=== PATIENT | female | born 1955 | race Caucasian/White ===

== ENCOUNTER 2018-12-18 16:36 | Inpatient (IN) | payer OTHER ==
[~2018-12-18] VITALS: Ht 160 cm; Wt 81.6 kg
[2018-12-18] MEDS: DEXT 5% / NACL 0.45% 1,000 ML IV SCH (00:45)
[~2018-12-18 16:36] MED LIST: ARIP5TAB8 PO; BUPR300T70 PO; ESCI20TA PO; HUM7525 SUBQ
[2018-12-18 16:40] VITALS: BP 145/83
--- NOTE | 2018-12-18 17:20 | NUR ---
PT AMBULATED TO BED 06.
--- NOTE | 2018-12-18 17:25 | NUR ---
63 Y F bib family with c/o vomiting blood x last night. pt states she hasnt been able to sleep due to vomiting all night. no pain. no fever, no n/v/d. pt states her last bm was sunday and that her stool has been black and tarry. bed is down, locked, bed rail x 1, ermd notified. pmh-liver cirrhosis
--- NOTE | 2018-12-18 18:03 | NUR ---
Dr. Verdugo evaluating patient at bedside.
[2018-12-18] MEDS ORDERED: OCTREOTIDE ACETATE 100 MCG/ML VIAL SUBQ SCH (18:10)
[2018-12-18] MEDS ORDERED: PANTOPRAZOLE 40 MG INJ VIAL IVP ONE (18:10)
--- NOTE | 2018-12-18 18:22 | NUR ---
lab at bedside
[2018-12-18] MEDS ORDERED: PANTOPRAZOLE 40 MG INJ VIAL ONE (18:31)
[2018-12-18 18:33] LABS: BASOPHILS % (AUTO) 0.2 % (0.0-2.0); EOSINOPHILS % (AUTO) 0.6 % (0.0-4.0); HEMATOCRIT 39.4 % (36-48); HEMOGLOBIN 13.6 g/dL (12.0-16.0); LYMPHOCYTES # (AUTO) 1.4 K/uL (2.5-16.5); LYMPHOCYTES % (AUTO) 18.6 % (20.5-51.1); MEAN CORPUSCULAR HEMOGLOBIN 31 pg (27-31); MEAN CORPUSCULAR HGB CONC 35 g/dL (33-37); MEAN CORPUSCULAR VOLUME 90.8 fL (80-94); MONOCYTES # (AUTO) 0.4 K/uL (0.8-1.0); MONOCYTES % (AUTO) 6.1 % (1.7-9.3); NEUTROPHILS # (AUTO) 5.5 K/uL (1.8-7.7); NEUTROPHILS % (AUTO) 74.5 % (42.2-75.2); PLATELET COUNT (AUTO) 52 K/uL (140-450); RED BLOOD CELL COUNT(AUTO) 4.34 MIL/uL (4.20-5.40); RED CELL DISTRIBUTION WIDTH 14.2 % (11.6-13.7); WHITE BLOOD COUNT (AUTO) 7.4 K/uL (4.8-10.8)
[2018-12-18] MEDS: PANTOPRAZOLE 80 MG in NACL 0.9% 100 ML IV SCH (18:34)
[2018-12-18 18:52] LABS: PROTHROMBIN TIME 11.5 secs (10.8-13.4)
--- NOTE | 2018-12-18 19:10 | NUR ---
RECEIVED REPORT FROM TAMEKA EASTMAN.
[2018-12-18 19:16] LABS: ANION GAP 11.7 (8-16); CARBON DIOXIDE 29.8 mmol/L (21-32); CREATININE 0.9 mg/dL (0.6-1.3); POTASSIUM 3.5 mmol/L (3.5-5.1)
[2018-12-18 19:49] LABS: ALBUMIN 3.2 g/dL (3.4-5.0); TOTAL BILIRUBIN 1.3 mg/dL (0.0-1.0)
[2018-12-18] MEDS ORDERED: OMEP20TC12 PO (19:55)
[2018-12-18] MEDS ORDERED: LANTUS SC (19:56)
[2018-12-18] MEDS ORDERED: [UNRECOGNIZED DRUG - CODE] SQ (19:56)
[2018-12-18] MEDS ORDERED: BUPR300T70 PO (19:58)
--- NOTE | 2018-12-18 20:46 | NUR ---
Patient appears to be resting comfortably in bed. Vital Signs within normal limits. Respirations even and unlabored. HOB elevated. Side rail up x 1. Bed in lowest position. PIV site patent, CDI, no redness. Positioned for comfort. Denies pain. No apparent distress at this time.
[2018-12-18] MEDS ORDERED: ONDANSETRON 4 MG/2 ML VIAL IVP PRN (20:50)
[2018-12-18] MEDS ORDERED: MORPHINE SULFATE 2 MG/ML SYR IVP PRN (20:50)
[2018-12-18] MEDS ORDERED: ACETAMINOPHEN 325 MG TAB PO PRN (20:50)
[2018-12-18] MEDS ORDERED: PANTOPRAZOLE 40 MG INJ VIAL IVP SCH (21:00)
--- NOTE | 2018-12-18 21:33 | NUR ---
Patient will be admitted to care of Dr. Gonsalez. Admited to Tele. Will go to room 119 A. Belongings list completed. Report to TAMEKA Brooks.
[2018-12-18 21:34] VITALS: BP 13/70
--- NOTE | 2018-12-18 21:34 | NUR ---
RECEIVED BEDSIDE REPORT FROM ER NURSE, PATIENT A+OX4, PATIENT AMBULATED FROM [facility] TO BED, APPLIED TELE MONITOR, VITALS SIGNS STABLE, 20 G IV IN RIGHTY AC, DRESSING CLEAN DRY AND INTACT, ORIENTED PATIENT TO ROOM AND CALL LIGHT, MRSA SWAB COMPLETED, NO SIGNS OF DISTRESS, PATIENT SITTING UPRIGHT IN BED WITH BED IN LOW POSITION, CALL LIGHT WITHIN REACH, SPOUSE AT BEDSIDE. WILL CONTINUE TO MONITOR.
--- NOTE | 2018-12-18 22:45 | NUR ---
DR. LOBO SPOKE WITH PATIENT AT BEDSIDE, PATIENT ALERT AND ORIENTED, DR. LOBO ORDERED TO CONTINUE THE PROTONIX DRIP, HE ORDERED Q6H CBC AND INSTRUCTED US TO MONITOR HGB AND ADMIN 1 UNIT OF PRBCS IF HGB DROPS 2.
[2018-12-19] VITALS: BP 116/68
--- NOTE | 2018-12-19 | NUR ---
PATIENT RESTING IN BED, VITALS STABLE, NO SIGNS OF DISTRESS, CALL LIGHT WITHIN REACH AND BED IN LOW POSITION. WILL CONTINUE TO MONITOR.
--- NOTE | 2018-12-19 00:20 | NUR ---
SPOKE TO DR. SUTHERLAND, HE PLACED ORDER TO OBTAIN CONSENT FOR EGD. WILL CONTINUE WITH ORDERS.
[2018-12-19 00:33] LABS: BASOPHILS % (AUTO) 0.6 % (0.0-2.0); EOSINOPHILS # (AUTO) 0.1 K/uL (0-0.4); EOSINOPHILS % (AUTO) 1.5 % (0.0-4.0); HEMATOCRIT 37.2 % (36-48); HEMOGLOBIN 12.9 g/dL (12.0-16.0); LYMPHOCYTES # (AUTO) 2.3 K/uL (2.5-16.5); MEAN CORPUSCULAR HEMOGLOBIN 32 pg (27-31); MEAN CORPUSCULAR HGB CONC 35 g/dL (33-37); MEAN CORPUSCULAR VOLUME 91.1 fL (80-94); MONOCYTES # (AUTO) 0.6 K/uL (0.8-1.0); MONOCYTES % (AUTO) 7.2 % (1.7-9.3); NEUTROPHILS # (AUTO) 4.9 K/uL (1.8-7.7); NEUTROPHILS % (AUTO) 61.7 % (42.2-75.2); PLATELET COUNT (AUTO) 50 K/uL (140-450); RED BLOOD CELL COUNT(AUTO) 4.08 MIL/uL (4.20-5.40); RED CELL DISTRIBUTION WIDTH 14.2 % (11.6-13.7)
[2018-12-19] MEDS ORDERED: PANTOPRAZOLE 40 MG INJ VIAL ONE (03:40)
--- NOTE | 2018-12-19 03:48 | NUR ---
ADMINISTERED ORDERED MEDICATION, PATIENT SLEEPING IN BED, VITALS SIGNS STABLE, NO SIGN OF DISTRESS ON RA, WILL CONTINUE TO MONITOR
[2018-12-19] MEDS: PANTOPRAZOLE 80 MG in NACL 0.9% 100 ML IV SCH (03:49)
[2018-12-19 04:00] VITALS: BP 119/59
[2018-12-19 06:36] LABS: PROTHROMBIN TIME 11.8 secs (10.8-13.4)
[2018-12-19 06:42] LABS: ALBUMIN 2.8 g/dL (3.4-5.0); ANION GAP 12.1 (8-16); CARBON DIOXIDE 28.4 mmol/L (21-32); CREATININE 0.8 mg/dL (0.6-1.3); POTASSIUM 3.5 mmol/L (3.5-5.1); TOTAL BILIRUBIN 1.1 mg/dL (0.0-1.0)
[2018-12-19 06:45] LABS: BASOPHILS % (AUTO) 0.5 % (0.0-2.0); EOSINOPHILS # (AUTO) 0.2 K/uL (0-0.4); EOSINOPHILS % (AUTO) 2.2 % (0.0-4.0); HEMATOCRIT 36.2 % (36-48); HEMOGLOBIN 12.8 g/dL (12.0-16.0); LYMPHOCYTES # (AUTO) 2.3 K/uL (2.5-16.5); LYMPHOCYTES % (AUTO) 32.5 % (20.5-51.1); MEAN CORPUSCULAR HEMOGLOBIN 32 pg (27-31); MEAN CORPUSCULAR HGB CONC 35 g/dL (33-37); MEAN CORPUSCULAR VOLUME 91.7 fL (80-94); MONOCYTES # (AUTO) 0.6 K/uL (0.8-1.0); MONOCYTES % (AUTO) 7.9 % (1.7-9.3); NEUTROPHILS % (AUTO) 56.9 % (42.2-75.2); PLATELET COUNT (AUTO) 44 K/uL (140-450); RED BLOOD CELL COUNT(AUTO) 3.95 MIL/uL (4.20-5.40); RED CELL DISTRIBUTION WIDTH 14.3 % (11.6-13.7)
[2018-12-19] MEDS: DEXT 5% / NACL 0.45% 1,000 ML IV SCH (06:50)
--- NOTE | 2018-12-19 07:26 | NUR ---
GAVE BEDSIDE REPORT TO DAY SHIFT NURSE, PATIENT SITTING UP IN BED WATCHING TV, NO SIGNS OF DISTRESS ON RA.
--- NOTE | 2018-12-19 07:27 | NUR ---
RECEIVED BEDSIDE REPORT FROM TAMEKA FERNANDES. PATIENT ON TELE MONITOR AND STANDARD PRECAUTIONS IN PLACE. PATIENT AAOX4 AND ON ROOM AIR, NO DISTRESS NOTED. IV ON R FA 22 G AND R AC 20 G, BOTH ASYMPTOMATIC PATENT AND INTACT. INFUSING D5 1/2 NS AT 100. PATIENT ABLE TO AMBULATE AND CONTINENT, SKIN INTACT. BED IN LOW POSITION, CALL LIGHT WITHIN REACH. WILL CONTINUE TO MONITOR.
[2018-12-19] MEDS ORDERED: fentaNYL 0.05 MG/ML VIAL ONE (07:57)
[2018-12-19] MEDS ORDERED: MIDAZOLAM 2 MG/2 ML VIAL ONE (07:58)
[2018-12-19 08:00] VITALS: BP 107/52
[2018-12-19] MEDS ORDERED: fentaNYL 0.05 MG/ML VIAL IVP SCH (08:20)
[2018-12-19] MEDS ORDERED: MIDAZOLAM 2 MG/2 ML VIAL IVP SCH (08:20)
--- NOTE | 2018-12-19 08:32 | NUR ---
PATIENT BACK FROM OR FOR EGD. PATIENT IN STABLE CONDITION.
--- NOTE | 2018-12-19 08:57 | NUR ---
PATIENT HAS BEEN SCREENED AND CATEGORIZED MODERATE NUTRITION RISK. PATIENT WILL BE SEEN WITHIN 3-5 DAYS OF ADMISSION. 12/21/18-12/23/[address]
[2018-12-19] MEDS ORDERED: ESCITALOPRAM 20 MG TAB PO SCH (09:00)
[2018-12-19] MEDS ORDERED: buPROPion 150 MG TABER PO SCH (09:00)
[2018-12-19] MEDS ORDERED: ARIPiprazole 10 MG TAB PO SCH (09:00)
[2018-12-19] MEDS ORDERED: PANTOPRAZOLE 40 MG INJ VIAL IVP SCH (09:00)
[2018-12-19] MEDS ORDERED: NON-FORMULARY ITEM (Bupropion HCl* (Wellbutrin Xl*) 1 TAB) PO SCH (09:00)
[2018-12-19] MEDS ORDERED: SUCR1TAB35 PO (09:23)
[2018-12-19] MEDS ORDERED: PANT40EC PO (09:23)
--- NOTE | 2018-12-19 10:33 | NUR ---
ADMINISTERED SCHEDULED MEDS. PATIENT TOLERATED WELL. WILL CONTINUE TO MONITOR.
--- NOTE | 2018-12-19 10:55 | NUR ---
ANTHONY NOTE I SPOKE WITH DALLAS OF [facility] # [phone] TO SET UP PATIENT'S HIGH RISK OUTPATIENT FOLLOW UP WITH DR. ROB LOBO ON DECEMBER 23, 2018 2:00PM AT [address] [place], [place] [id number]. I GAVE THE PATIENT HER FOLLOW UP SCHEDULE AND FAXED REQUESTED FACESHEET, ORDER FOR HIGH RISK OUTPATIENT FF UP, LAB RESULTS AND LIST OF MEDS TO [facility] ATTN: DALLAS. FAXED ORDER FOR [facility] HIGH RISK OUTPATIENT FF UP TO [facility]. ANTHONY MAURO.
[2018-12-19] MEDS ORDERED: PNEUMOCOCCAL VACCINE 23 MCG/0.5 ML VIAL IMVAC SCH (11:10)
[2018-12-19] MEDS ORDERED: INFLUENZA VIRUS VACCINE QUAD 0.5 ML SYR IMVAC PRN (11:10)
--- NOTE | 2018-12-19 11:50 | NUR ---
DISCHARGE INSTRUCTIONS PROVIDED TO PATIENT. PATIENT WITH FORM FOR APPOINTMENT WITH DR. LOBO GIVEN BY ANGEL, BAR PORTER. SKIN INTACT. FLU AND PNA VACCINES GIVEN AT DISCHARGE. INSTRUCTED TO RETURN TO NEAREST ER OR CALL 911 WHEN SHE HAS SOB, FEVER, PAIN, BLEEDING. PATIENT VERBALIZED UNDERSTANDING. PRESCRIPTIONS PROVIDED IN DISCHARGE PACKET/FOLDER. ALL BELONGINGS, CLOTHES, ESTATE PLANNER, AND PHONE BROUGHT WITH PATIENT. WRIST BANDS REMOVED AND IV REMOVED, IV TIP INTACT. ANSWERED ALL QUESTIONS AND CONCERNS. AMBULATED WITH FRIEND TO MAIN LOBBY.
[2018-12-19] MEDS ORDERED: LACTULOSE 20 GM/30 ML UDC PO SCH (21:00)
== END 2018-12-19 11:50 | disposition home or self-care (01) | DRG 241 ==
LOC: MED 16:36 → MTU 20:50
PROVIDERS: ADMIT Hospitalist; ATTEND Hospitalist
PROC: 0DJ08ZZ Inspection of Upper Intestinal Tract, Via Natural or Artificial Opening Endoscopic (ICD-10-PCS; principal; 2018-12-18)
PROC: 3E0234Z Introduction of Serum, Toxoid and Vaccine into Muscle, Percutaneous Approach (ICD-10-PCS; 2018-12-19)
PROC: 3E02340 Introduction of Influenza Vaccine into Muscle, Percutaneous Approach (ICD-10-PCS; 2018-12-19)
DX: K29.81 Duodenitis with bleeding (principal); D69.59 Other secondary thrombocytopenia; D69.6 Thrombocytopenia, unspecified; N04.9 Nephrotic syndrome with unspecified morphologic changes; E44.1 Mild protein-calorie malnutrition; K70.30 Alcoholic cirrhosis of liver without ascites; K22.6 Gastro-esophageal laceration-hemorrhage syndrome; E11.9 Type 2 diabetes mellitus without complications; D73.1 Hypersplenism; F32.9 Major depressive disorder, single episode, unspecified; K29.71 Gastritis, unspecified, with bleeding; I10 Essential (primary) hypertension; K57.90 Diverticulosis of intestine, part unspecified, without perforation or abscess without bleeding; K21.9 Gastro-esophageal reflux disease without esophagitis; K26.4 Chronic or unspecified duodenal ulcer with hemorrhage; Z68.31 Body mass index [BMI] 31.0-31.9, adult; Z88.1 Allergy status to other antibiotic agents; Z23 Encounter for immunization
CPT/HCPCS: 36415; 71045; 80053; 82140; 84443; 85025; 85610; 85730; 86886; 86900; 86901; 87081; 90732; 93005; 96374; 99285; C9113; J2250; J2354; J3010; J7030; Q0092

== ENCOUNTER 2019-01-11 17:41 | Emergency (ER) | payer OTHER ==
[~2019-01-11] VITALS: Ht 160 cm; Wt 80.7 kg
[~2019-01-11 17:41] MED LIST changes: +LANTUS SC; +OMEP20TC12 PO; +PANT40EC PO; +SUCR1TAB35 PO; +[UNRECOGNIZED DRUG - CODE] SQ
[2019-01-11 17:54] VITALS: BP 159/78
--- NOTE | 2019-01-11 19:22 | NUR ---
PT AMBULATED TO BED 12
--- NOTE | 2019-01-11 20:00 | NUR ---
PT PRESENTS TO ED WITH COMPLAINTS OF LEFT CALF PAIN SINCE SUNDAY. PT STATES SHE WOKE UP IN AM, SUDDEN ONSET, PT DESCRIBES PAIN LIKE "DAMIR HORSE." PT STATES SHE WAS ADMITTED LAST APRIL FOR SIMILAR SYMPTOMS. PT STATES THEY DID AN US LAST TIME AND WAS NEGATIVE FOR DVT. PT AMBULATES WITH STEADY GAIT. NO ERYTHEMA NOTED TO LEFT CALF, WARM TO TOUCH. AOX4, CLEAR SPEECH. NAD NOTED. PT STATES "I JUST WANT TO KNOW WHY IT KEEPS COMING BACK." PT DENIES ANY TRAUMA.
--- NOTE | 2019-01-11 20:19 | NUR ---
Dr. Knapp evaluating patient at bedside.
[2019-01-11] MEDS ORDERED: KETOROLAC 60 MG/2 ML VIAL IM ONE (20:25)
[2019-01-11 20:46] VITALS: BP 150/78
== END 2019-01-11 20:48 | disposition home or self-care (01) ==
LOC: MED 17:41
DX: M79.662 Pain in left lower leg (principal); E11.9 Type 2 diabetes mellitus without complications; I10 Essential (primary) hypertension; Z79.4 Long term (current) use of insulin; Z79.899 Other long term (current) drug therapy; Z88.1 Allergy status to other antibiotic agents
CPT/HCPCS: 96372; 99283; J1885

== ENCOUNTER 2019-03-10 16:08 | Emergency (ER) | payer OTHER ==
[~2019-03-10] VITALS: Ht 160 cm; Wt 80.7 kg
[~2019-03-10 16:08] MED LIST changes: -HUM7525 SUBQ; -OMEP20TC12 PO
[2019-03-10 16:21] VITALS: BP 148/73
--- NOTE | 2019-03-10 16:47 | NUR ---
64 Y FEMALE BIB C/O RIGHT LEG SWOLLEN, PAIN /10 TODAY, REFERRED BY PCP FOR DVT CHECK UP. REQUESTING ULTRASOUND. EDEMA PRESENT ON R LEG, NON-PITTING. PALPABLE RIGHT PEDAL PULSE. L LEG IN BRACE. PT WHEELCHAIRED TO ROOM. BS 214. PT AA0X4. VSS AT THIS TIME. BED IS DOWN, LOCKED, BED RAIL X 1, ERMD TO SEE PT. HX OF DM, LIVER CIRRHOSIS, TUMOR REMOVABLE TO LEFT LOWER EXTREMITY 02/27/19.
--- NOTE | 2019-03-10 17:14 | NUR ---
Dr. Black evaluating patient at bedside.
--- NOTE | 2019-03-10 17:28 | NUR ---
US AT BEDSIDE
--- NOTE | 2019-03-10 18:30 | NUR ---
PT AA0X4. SITTING IN BED WITH BEDSIDE.
[2019-03-10] MEDS ORDERED: KETOROLAC 60 MG/2 ML VIAL IM ONE (18:45)
[2019-03-10 18:52] LABS: ANION GAP 9.9 (8-16); CREATININE 0.8 mg/dL (0.6-1.3); POTASSIUM 3.9 mmol/L (3.5-5.1)
[2019-03-10 18:59] LABS: TOTAL BILIRUBIN 0.7 mg/dL (0.0-1.0)
[2019-03-10 19:24] VITALS: BP 138/58
--- NOTE | 2019-03-10 19:24 | NUR ---
Patient discharged with v/s stable. Written and verbal after care instructions given and explained. Patient verbalized understanding. PT WHEELCHAIRED BY . All questions addressed prior to discharge. Advised to follow up with PMD. PT GIVEN COPY OF ULTRASOUND RESULTS AND LAB WORK.
== END 2019-03-10 19:24 | disposition home or self-care (01) ==
LOC: MED 16:08
DX: R60.0 Localized edema (principal); E11.9 Type 2 diabetes mellitus without complications; N28.9 Disorder of kidney and ureter, unspecified; Z98.890 Other specified postprocedural states; Z79.4 Long term (current) use of insulin; Z79.899 Other long term (current) drug therapy; Z88.1 Allergy status to other antibiotic agents
CPT/HCPCS: 36415; 80053; 93970; 96372; 99284; J1885; Q0092

== ENCOUNTER 2019-06-11 20:03 | Emergency (ER) | payer OTHER ==
[~2019-06-11] VITALS: Ht 160 cm; Wt 83.0 kg
[2019-06-11 20:07] VITALS: BP 168/79
--- NOTE | 2019-06-11 20:11 | NUR ---
PT AMBULATED TO THE LOBBY WITH VSS.
--- NOTE | 2019-06-11 20:35 | NUR ---
PATIENT PRESENTS TO ED WITH C/O BACK AND NECK PAIN S/P SLIP AND FALL AT [facility]. PATIENT DENIES ANY LOC, DOES STATE POSSIBLE HEAD INJURY. PATIENT GCS 15, AAOX4 . PT DENIES ANY USE OF BLOOD THINNERS. GIANNA NOBLE MADE AWARE .PATIENT DENIES N/V/D; SKIN IS PINK/WARM/DRY; AAOX4 WITH EVEN AND STEADY GAIT; LUNGS CLEAR BL; HR EVEN AND REGULAR; PT DENIES ANY FEVER, CP, SOB, OR COUGH AT THIS TIME; VSS; PATIENT POSITIONED FOR COMFORT; HOB ELEVATED; BEDRAILS UP X2; BED DOWN. ER MD MADE AWARE OF PT STATUS.
--- NOTE | 2019-06-11 20:40 | NUR ---
PATIENT BEING EVAL BY GIANNA FRIED
[2019-06-11] MEDS ORDERED: KETOROLAC 30 MG/ML VIAL IM ONE (20:45)
[2019-06-11 21:58] VITALS: BP 141/62
--- NOTE | 2019-06-11 21:58 | NUR ---
Patient discharged with v/s stable. Written and verbal after care instructions given and explained. Patient alert, oriented and verbalized understanding of instructions. Ambulatory with steady gait. All questions addressed prior to discharge. ID band removed. Patient advised to follow up with PMD. Rx of VOLTAREN GEL given. Patient educated on indication of medication including possible reaction and side effects. Opportunity to ask questions provided and answered.
== END 2019-06-11 21:58 | disposition home or self-care (01) ==
LOC: MED 20:03
DX: S16.1XXA Strain of muscle, fascia and tendon at neck level, initial encounter (principal); M47.892 Other spondylosis, cervical region; I10 Essential (primary) hypertension; E11.9 Type 2 diabetes mellitus without complications; Z79.899 Other long term (current) drug therapy; Z88.1 Allergy status to other antibiotic agents; Z87.448 Personal history of other diseases of urinary system; Z79.4 Long term (current) use of insulin; W01.0XXA Fall on same level from slipping, tripping and stumbling without subsequent striking against object, initial encounter; Y93.89 Activity, other specified; Y92.512 Supermarket, store or market as the place of occurrence of the external cause; Y99.8 Other external cause status
CPT/HCPCS: 72050; 96372; 99283; J1885

== ENCOUNTER 2019-09-28 14:23 | Emergency (ER) | payer OTHER ==
[~2019-09-28] VITALS: Ht 167.6 cm; Wt 81.6 kg
[2019-09-28 14:25] VITALS: BP 127/69
--- NOTE | 2019-09-28 14:32 | NUR ---
PT TAKEN TO BED 5 BY EMS.
[2019-09-28] MEDS ORDERED: NACL 0.9% 1,000 ML IV SCH (15:00)
--- NOTE | 2019-09-28 15:00 | NUR ---
GANGA FROM HOME FOR HYPERGLYCEMIA, FAMILY CALLED 911; PT INITIALLY DIDN'T WANT TO GO TO HOSPITAL, C/O HEADACHE, DIZZINESS, AND FEELING "TIRED" FAMILY STATES PT DID NOT TAKE HER INSULIN LAST NIGHT ,PT AWAKE ,ALERT AFEBRILE NOT IN DISTRESS. HX DM, HTN, HIGH CHOLESTEROL
--- NOTE | 2019-09-28 15:24 | NUR ---
LABS AT BEDSIDE.
[2019-09-28 15:45] LABS: BASOPHILS % (AUTO) 0.2 % (0.0-2.0); EOSINOPHILS % (AUTO) 0.2 % (0.0-4.0); HEMATOCRIT 41.2 % (36-48); LYMPHOCYTES # (AUTO) 1.4 K/uL (2.5-16.5); LYMPHOCYTES % (AUTO) 20.3 % (20.5-51.1); MEAN CORPUSCULAR HEMOGLOBIN 31 pg (27-31); MEAN CORPUSCULAR HGB CONC 34 g/dL (33-37); MEAN CORPUSCULAR VOLUME 91.2 fL (80-94); MONOCYTES # (AUTO) 0.4 K/uL (0.8-1.0); MONOCYTES % (AUTO) 6.6 % (1.7-9.3); NEUTROPHILS # (AUTO) 4.9 K/uL (1.8-7.7); NEUTROPHILS % (AUTO) 72.7 % (42.2-75.2); PLATELET COUNT (AUTO) 77 K/uL (140-450); RED BLOOD CELL COUNT(AUTO) 4.52 MIL/uL (4.20-5.40); WHITE BLOOD COUNT (AUTO) 6.7 K/uL (4.8-10.8)
--- NOTE | 2019-09-28 15:55 | NUR ---
PT WENT TO RESTROOM WITH FAMILY.
[2019-09-28 16:11] LABS: ALBUMIN 2.9 g/dL (3.4-5.0); ANION GAP 13.1 (8-16); CARBON DIOXIDE 27.2 mmol/L (21-32); CREATININE 1.3 mg/dL (0.6-1.3); POTASSIUM 4.3 mmol/L (3.5-5.1); TOTAL BILIRUBIN 0.6 mg/dL (0.0-1.0)
--- NOTE | 2019-09-28 16:14 | NUR ---
dr edmondson informed of neck pain at 01/31.
[2019-09-28] MEDS ORDERED: KETOROLAC 30 MG/ML VIAL IVP ONE (16:15)
--- NOTE | 2019-09-28 16:15 | NUR ---
received critical lab result from lab blood sugar is 474 dr edmondson informed.
[2019-09-28] MEDS ORDERED: INSULIN REGULAR, HUMAN 100 UNIT/ML VIAL IV ONE (17:10)
[2019-09-28 17:25] LABS: APPEARANCE,URINE CLEAR (CLEAR); BILIRUBIN,URINE NEGATIVE (NEGATIVE); BLOOD, URINE 1+ (NEGATIVE); COLOR,URINE YELLOW (YELLOW); LEUKOCYTE ESTERASE ,URINE 2+ (NEGATIVE); NITRITE, URINE NEGATIVE (NEGATIVE); UGLUCOSE 3+ (NEGATIVE)
[2019-09-28 17:40] LABS: WBC,URINE 16-25 (MOD) /HPF (0-5)
--- NOTE | 2019-09-28 18:20 | NUR ---
DR DIALLO AT BEDSIDE .ACCU CHECK AT 332 MG/DL.DR DIALLO INFORMED AND AWARE.
[2019-09-28 18:43] VITALS: BP 109/48
--- NOTE | 2019-09-28 18:44 | NUR ---
Patient discharged with v/s stable. Written and verbal after care instructions given and explained cervical sprain. Patient alert, oriented and verbalized understanding of instructions. Ambulatory with steady gait. All questions addressed prior to discharge. ID band removed. Patient advised to follow up with PMD. Rx of cipro,motrin and norco given. Patient educated on indication of medication including possible reaction and side effects. Opportunity to ask questions provided and answered.
== END 2019-09-28 18:44 | disposition home or self-care (01) ==
LOC: MED 14:23
DX: M50.90 Cervical disc disorder, unspecified, unspecified cervical region (principal); N39.0 Urinary tract infection, site not specified; I12.9 Hypertensive chronic kidney disease with stage 1 through stage 4 chronic kidney disease, or unspecified chronic kidney disease; E11.22 Type 2 diabetes mellitus with diabetic chronic kidney disease; N18.9 Chronic kidney disease, unspecified; Z79.899 Other long term (current) drug therapy; Z79.4 Long term (current) use of insulin; Z98.890 Other specified postprocedural states
CPT/HCPCS: 36415; 80053; 81001; 82948; 83690; 85025; 87086; 96361; 96374; 96375; 99283; J1815; J1885; J7030

== ENCOUNTER 2020-02-26 20:59 | Emergency (ER) | payer OTHER ==
[~2020-02-26] VITALS: Ht 160 cm; Wt 81.6 kg
[2020-02-26 21:04] VITALS: BP 166/74
--- NOTE | 2020-02-26 21:12 | NUR ---
PT AMBULAOTRY TO ROOM 1
--- NOTE | 2020-02-26 21:28 | NUR ---
64 YO F BIB SELF FOR C/C OF 710 LEFT LIP, TONGUE, AND FACIAL PAIN SINCE A RASH FORMED ON HER FACE LAST SUNDAY. RASH STARTED ON LEFT LIP AND HAS SINCE SPREAD TO LEFT FACE, EAR, AND TONGUE. PT STATES IT FEELS LIKE A PRICKLY PAIN. RASH APPEARS TO LOOK LIKE VESICLES. PT STATES SHE HAS BEEN TAKIN IBUPROFEN WITH NO RELIEF OF SYMPTOMS. PT DENIES N/V/D, SOB, COUGH, OR FEVER. PT RESTING IN BED COMFORTABLY. BED LOCKED AND IN LOWEST POSITION. SIDE RAILS X1. ALLERGIES TO CEPHALEXIN
[2020-02-26] MEDS ORDERED: predniSONE 20 MG TAB PO ONE (21:30)
[2020-02-26] MEDS ORDERED: KETOROLAC 30 MG/ML VIAL IM ONE (21:40)
--- NOTE | 2020-02-26 21:52 | NUR ---
Patient discharged with v/s stable. Written and verbal after care instructions given and explained. Patient alert, oriented and verbalized understanding of instructions. Ambulatory with steady gait. All questions addressed prior to discharge. ID band removed. Patient advised to follow up with PMD. Rx of NORCO, PREDNISOEN AND ANTIVIRAL given. Patient educated on indication of medication including possible reaction and side effects. Opportunity to ask questions provided and answered.
[2020-02-26 21:54] VITALS: BP 166/74
== END 2020-02-26 21:54 | disposition home or self-care (01) ==
LOC: MED 20:59
DX: B02.21 Postherpetic geniculate ganglionitis (principal); I10 Essential (primary) hypertension; E11.9 Type 2 diabetes mellitus without complications; Z88.1 Allergy status to other antibiotic agents; Z79.899 Other long term (current) drug therapy
CPT/HCPCS: 96372; 99283; J1885; J7512

== ENCOUNTER 2020-03-22 00:47 | Emergency (ER) | payer OTHER ==
[~2020-03-22] VITALS: Ht 160 cm; Wt 81.2 kg
[2020-03-22 01:05] VITALS: BP 137/71
--- NOTE | 2020-03-22 01:15 | NUR ---
PT TAKEN TO BED 7
--- NOTE | 2020-03-22 01:25 | NUR ---
65 YEAR OLD FEMALE COMPLAINS OF PAIN TO LEFT SHOULDER AND LEFT KNEE AFTER FALLING TO FLOOR AT [place]. PT DENIES HITTING HEAD. LEFT ARM HAS LIMITED ROM IN LEFT ARM AND LEG. PULSES +3 IN EXTREMITIES. PT STATES SOME DIZZINESS WHEN TRANSFER FROM WHEELCHAIR TO BED. PT AOX4, BREATHING EVEN AND UNLABORED, SKIN WARM AND DRY. BED IN LOWEST POSITION, LOCKED, BED RAIL UPX1. PMH - LIVER CIRRHOSIS, DM2 ALLERGIES - KEFLEX
--- NOTE | 2020-03-22 01:46 | NUR ---
Dr. Willis examining patient.
[2020-03-22] MEDS ORDERED: BACITRACIN OINT 500 UNITS/GM PKT TP ONE (01:54)
[2020-03-22] MEDS: BACITRACIN OINT 500 UNITS/GM PKT TP ONE (01:55)
[2020-03-22] MEDS: KETOROLAC 30 MG/ML VIAL IM ONE (01:59)
--- NOTE | 2020-03-22 01:59 | NUR ---
EMT AT BEDSIDE CLEANING ABRASION ON LEFT KNEE, PLACED ON BACITRACIN
--- NOTE | 2020-03-22 02:02 | NUR ---
XRAY AT BEDSIDE
--- NOTE | 2020-03-22 02:07 | NUR ---
Jaymie huitron in [facility] - 03/22/20 at 0207 by АННА X-Ray at bedside.
[2020-03-22 02:50] VITALS: BP 137/71
== END 2020-03-22 02:50 | disposition home or self-care (01) ==
LOC: MED 00:47
DX: M25.512 Pain in left shoulder (principal); M25.562 Pain in left knee; M54.2 Cervicalgia; E11.9 Type 2 diabetes mellitus without complications; I10 Essential (primary) hypertension; Z79.4 Long term (current) use of insulin; Z79.899 Other long term (current) drug therapy; Z88.1 Allergy status to other antibiotic agents
CPT/HCPCS: 73030; 73562; 96372; 99284; J1885; Q0092

== ENCOUNTER 2020-05-04 16:11 | Observation (INO) | payer OTHER ==
[~2020-05-04] VITALS: Ht 160 cm; Wt 79.4 kg
[2020-05-04 16:23] VITALS: BP 127/59
--- NOTE | 2020-05-04 16:29 | NUR ---
Patient transferred to bed 6 via wheelchair by family. RN evaluating patient at bedside.
--- NOTE | 2020-05-04 16:36 | NUR ---
65 y/o female from home referred from urgent care to r/o DVT. Pt c/o rt calf pain that started yesterday. States she had rt big toe surgery on 04/29/20. Pt presents with splint to rt lower leg. Able to move toes. Skin warm, dry, and intact. 8/10 throbbing pain to calf. Took hydrocodone at 1400 today with some relief. Positioned for comfort, x 1 side rail raised. VSS medhx: HTN, DM, Cirrhosis allergies: keflex
--- NOTE | 2020-05-04 16:39 | NUR ---
Dr Alvarez at bedside examining pt
--- NOTE | 2020-05-04 16:43 | NUR ---
US tech at bedside for exam.
[2020-05-04 16:50] LABS: BASOPHILS % (AUTO) 0.6 % (0.0-2.0); EOSINOPHILS # (AUTO) 0.1 K/uL (0-0.4); EOSINOPHILS % (AUTO) 1.9 % (0.0-4.0); HEMATOCRIT 36.1 % (36-48); HEMOGLOBIN 12.2 g/dL (12.0-16.0); LYMPHOCYTES # (AUTO) 1.6 K/uL (2.5-16.5); LYMPHOCYTES % (AUTO) 21.3 % (20.5-51.1); MEAN CORPUSCULAR HEMOGLOBIN 32 pg (27-31); MEAN CORPUSCULAR HGB CONC 34 g/dL (33-37); MEAN CORPUSCULAR VOLUME 94.7 fL (80-94); MONOCYTES # (AUTO) 0.8 K/uL (0.8-1.0); MONOCYTES % (AUTO) 10.8 % (1.7-9.3); NEUTROPHILS % (AUTO) 65.4 % (42.2-75.2); PLATELET COUNT (AUTO) 76 K/uL (140-450); RED BLOOD CELL COUNT(AUTO) 3.81 MIL/uL (4.20-5.40); RED CELL DISTRIBUTION WIDTH 14.5 % (11.6-13.7); WHITE BLOOD COUNT (AUTO) 7.7 K/uL (4.8-10.8)
[2020-05-04] MEDS ORDERED: NACL 0.9% 500 ML IV SCH (17:01)
[2020-05-04] MEDS ORDERED: MORPHINE SULFATE 2 MG/ML SYR IVP ONE (17:05)
[2020-05-04] MEDS ORDERED: CLINDAMYCIN 900 MG in DEXTROSE 5% 100 ML IV ONE (17:05)
--- NOTE | 2020-05-04 17:10 | NUR ---
20G IV placed to lt forearm, blood cultures drawn at this time.
[2020-05-04 17:12] LABS: PROTHROMBIN TIME 11.4 secs (10.8-13.4)
[2020-05-04] MEDS ORDERED: CLINDAMYCIN 900 MG/6 ML VIAL IV ONE (17:12)
[2020-05-04] MEDS ORDERED: VANCOMYCIN 1,000 MG in DEXTROSE 5% 250 ML IV ONE (17:15)
[2020-05-04 17:29] LABS: ALBUMIN 2.6 g/dL (3.4-5.0); ANION GAP 10.6 (8-16); CARBON DIOXIDE 27.3 mmol/L (21-32); CREATININE 0.8 mg/dL (0.6-1.3); POTASSIUM 3.9 mmol/L (3.5-5.1); TOTAL BILIRUBIN 0.8 mg/dL (0.0-1.0)
--- NOTE | 2020-05-04 17:45 | NUR ---
Pt states she is unable to provide urine at this time. Will follow up with pt
[2020-05-04] MEDS ORDERED: VANCOMYCIN PER PHARMACY MC PRN (18:05)
[2020-05-04] MEDS ORDERED: INSULIN LISPRO SLIDING SCALE 100 UNITS/ML VIAL SUBQ PRN (18:05)
[2020-05-04] MEDS ORDERED: ONDANSETRON 4 MG/2 ML VIAL IVP PRN (18:05)
[2020-05-04] MEDS ORDERED: ACETAMINOPHEN 325 MG TAB PO PRN (18:05)
[2020-05-04] MEDS ORDERED: ZOLPIDEM 5 MG TAB PO PRN (18:05)
[2020-05-04] MEDS ORDERED: DEXTROSE 50% 50 ML SYR IVP PRN (18:05)
[2020-05-04] MEDS ORDERED: VANCOMYCIN 1,000 MG VIAL ONE (18:14)
--- NOTE | 2020-05-04 18:53 | NUR ---
RECEIVED PATIENT FROM ED NURSE FOR ADMISSION AND CONTINUITY OF CARE VIA [facility]. PATIENT IS AAOX4, MARSHALLESE SPEAKING. RESPIRATIONS EVEN AND UNLABORED, ROOM AIR. VISIBLE CHEST RISE AND FALL NOTED. MED-SURG. SKIN WARM AND DRY. S/P RIGHT BUNION REMOVAL ON 04/29/2020. DRESSING INTACT. DX: FOOT CELLULITIS. IV IN THE LEFT FA G22, RUNNING VANCO FROM ED AT 165 ML/HR. IV RUNNING WELL. PATIENT IS BEDREST. FALL PRECAUTION. BED IN LOW POSITION. CALL LIGHT IS WITHIN REACH. WILL CONTINUE TO MONITOR.
--- NOTE | 2020-05-04 18:55 | NUR ---
VITAL SIGNS: BP IS 121/67, HR 80, O2SAT 98% RA, RR 19, TEMP 97.9. DENIES SOB. 6/10 R FOOT PAIN. MRSA NARES SWAB COLLECTED
--- NOTE | 2020-05-04 18:58 | NUR ---
Patient will be admitted to care of Dr Nash. Admited to Med surg. Will go to room 126b. Belongings list completed. Report to TAMEKA Sales.
--- NOTE | 2020-05-04 19:30 | NUR ---
RECEIVED PT FROM DAY SHIFT NURSE YANETH PT IS AAOX4 IV ON LEFT FA # 20 INFUSING VANCOMYCIN IVPB FROM ER, ,RT FOOT DRESSING DRY AND INTACT ON PILLOW ELEVATION PT IS ORIENTED TO THE FLOOR CALL LIGHT WITHIN REACH
[2020-05-04] MEDS ORDERED: SUCRALFATE 1 GM TAB ONE (19:58)
[2020-05-04 20:00] VITALS: BP 121/67
[2020-05-04] MEDS: HYDROcodone/APAP 5/325 MG 1 TAB TAB PO PRN (20:13)
[2020-05-04] MEDS: SUCRALFATE 1 GM TAB PO SCH (20:13)
[2020-05-04 20:57] LABS: APPEARANCE,URINE SL CLOUDY (CLEAR); BILIRUBIN,URINE NEGATIVE (NEGATIVE); BLOOD, URINE NEGATIVE (NEGATIVE); COLOR,URINE YELLOW (YELLOW); LEUKOCYTE ESTERASE ,URINE TRACE (NEGATIVE); NITRITE, URINE POSITIVE (NEGATIVE); UGLUCOSE TRACE (NEGATIVE)
[2020-05-04] MEDS: BLOOD GLUCOSE MONITORING 1 DEV DEV FS SCH (21:00)
--- NOTE | 2020-05-04 21:30 | NUR ---
BLOOD SUGAR TEST 126 NOT COVERAGE AND SNACK IS PROVIDED, AND URINE SAMPLE SENT TO LAB
[2020-05-04 21:57] LABS: RBC,URINE NONE SEEN /HPF (0-5); WBC,URINE 0-5 /HPF (0-5)
[2020-05-04] MEDS: VANCOMYCIN HCL 1.25 GM in DEXTROSE 5% 250 ML IV SCH (22:00)
[2020-05-04] MEDS ORDERED: AMPICILLIN/SULBACTAM 3 GM VIAL ONE (23:56)
[2020-05-05] VITALS: BP 126/66
[2020-05-05] MEDS: AMPICILLIN/SULBACTAM 3 GM in NACL 0.9% 100 ML IV SCH ×2 (00:01→05:41)
--- NOTE | 2020-05-05 01:00 | NUR ---
PT IS ASSISTED TO; USED BSC NOT DISTRESS NOTED
[2020-05-05] MEDS: HYDROcodone/APAP 5/325 MG 1 TAB TAB PO PRN (02:41)
--- NOTE | 2020-05-05 04:33 | NUR ---
SPONGE BATH GIVEN LINEN CHANGE PT REMAIN STABLE A THIS TIME
[2020-05-05] MEDS ORDERED: AMPICILLIN/SULBACTAM 3 GM VIAL ONE (04:43)
[2020-05-05] MEDS: BLOOD GLUCOSE MONITORING 1 DEV DEV FS SCH ×2 (05:54→12:17)
--- NOTE | 2020-05-05 06:19 | NUR ---
PT VOIDING WELL BLOOD SUGAR TEST 94
--- NOTE | 2020-05-05 06:20 | NUR ---
PT WILL BE ENDORSED TO; DAY SHIFT NURSE FOR CONTINUE OF CARE
--- NOTE | 2020-05-05 07:10 | NUR ---
BEDSIDE REPORT GIVEN BY NIGHT NURSE. PATIENT IN BED, ASLEEP AND EASILY AROUSABLE BY NAME OR TOUCH. RESPIRATIONS EVEN AND UNLABORED. SKIN WARM AND DRY TO TOUCH. IV INTACT AND PATENT TO LEFT FOREARM. BED IN LOW POSITION. PLANS OF CARE DISCUSSED. SAFETY MEASURES IN PLACE. CALL LIGHT WITHIN REACH.
[2020-05-05 08:46] LABS: ALBUMIN 2.4 g/dL (3.4-5.0); ANION GAP 11.5 (8-16); CREATININE 0.8 mg/dL (0.6-1.3); POTASSIUM 3.5 mmol/L (3.5-5.1); TOTAL BILIRUBIN 0.9 mg/dL (0.0-1.0)
[2020-05-05] MEDS ORDERED: CLIN300C5 PO (08:53)
[2020-05-05] MEDS ORDERED: LACT-2 (08:53)
[2020-05-05] MEDS ORDERED: buPROPion 150 MG TABER PO SCH (09:00)
[2020-05-05] MEDS ORDERED: LACTOBACILLUS RHAMNOSUS GG 1 EACH CAP PO SCH (09:00)
[2020-05-05] MEDS ORDERED: ARIPiprazole 10 MG TAB PO SCH (09:00)
[2020-05-05] MEDS ORDERED: ENOXAPARIN 40 MG/0.4 ML SYR SUBQ SCH (09:00)
[2020-05-05] MEDS ORDERED: POLYETHYLENE GLYCOL 17 GM/PKT PO SCH (09:00)
[2020-05-05] MEDS ORDERED: ESCITALOPRAM 20 MG TAB PO SCH (09:00)
[2020-05-05] MEDS ORDERED: DOCUSATE SODIUM 100 MG GELCAP PO SCH (09:00)
[2020-05-05] MEDS ORDERED: INSULIN LANTUS 100 UNITS/ML 10 ML VIAL SUBQ SCH (09:00)
[2020-05-05] MEDS ORDERED: PANTOPRAZOLE 40 MG TABEC PO SCH (09:00)
--- NOTE | 2020-05-05 09:15 | NUR ---
PATIENT HAS BEEN SCREENED AND CATEGORIZED LOW NUTRITION RISK. PATIENT WILL BE SEEN WITHIN 7 DAYS OF ADMISSION. 05/11/[address]
--- NOTE | 2020-05-05 09:30 | NUR ---
PATIENT IS ALERT AND ORIENTED X4. DENIES ANY PAIN OR DISCOMFORT. PATIENT FINISHED EATING BREAKFAST.
[2020-05-05] MEDS: SUCRALFATE 1 GM TAB PO SCH (09:33)
[2020-05-05] MEDS: VANCOMYCIN HCL 1.25 GM in DEXTROSE 5% 250 ML IV SCH (09:47)
--- NOTE | 2020-05-05 11:30 | NUR ---
PATIENT IN BED, RESTING QUIETLY. DENIES ANY PAIN OR DISCOMFORT AT THIS TIME.
[2020-05-05] MEDS ORDERED: CLINDAMYCIN 150 MG CAP PO SCH (12:00)
--- NOTE | 2020-05-05 12:40 | NUR ---
PATIENT STABLE. DISCHARGE INSTRUCTIONS WITH PRESCRIPTIONS GIVEN TO PATIENT. PT VERBALIZED UNDERSTANDING. ALL BELONGINGS SIGNED FOR. PATIENT IS GOING HOME TO BE PICKED UP BY SPOUSE VIA PRIVATE VEHICLE. IV REMOVED, CANNULA INTACT, NO BLEEDING. ID BAND REMOVED.
--- NOTE | 2020-05-05 13:00 | NUR ---
PATIENT BROUGHT OUT VIA W/C PICKED UP BY SPOUSE VIA PRIVATE VEHICLE GOING HOME. PATIENT'S BELONGINGS AND DISCHARGE INSTRUCTIONS GIVEN.
--- NOTE | 2020-05-05 14:02 | NUR ---
FOXING CLOSER NOTE: SW WAS UNABLE TO COMPLETE ASSESSMENT.
== END 2020-05-05 13:00 | disposition home or self-care (01) ==
LOC: MED 16:11 → INTOOBSV 18:08 → MMU 18:08
PROVIDERS: ADMIT Internal Medicine; ATTEND Internal Medicine
DX: L03.115 Cellulitis of right lower limb (principal); E11.9 Type 2 diabetes mellitus without complications; I10 Essential (primary) hypertension; K74.60 Unspecified cirrhosis of liver; Z90.710 Acquired absence of both cervix and uterus; Z79.4 Long term (current) use of insulin; Z79.899 Other long term (current) drug therapy; Z88.1 Allergy status to other antibiotic agents
CPT/HCPCS: 36415; 71045; 80053; 81001; 82948; 83605; 84484; 85025; 85610; 85730; 87040; 87081; 87086; 87186; 93005; 93971; 96365; 96366; 96367; 96375; 99285; G0378; J0295; J1815; J2270; J3370; J3490; J7030; J7060; Q0092; 96368; J1650

== ENCOUNTER 2020-08-03 03:11 | Emergency (ER) | payer OTHER ==
[~2020-08-03] VITALS: Ht 160 cm; Wt 85.3 kg
[~2020-08-03 03:11] MED LIST changes: +CLIN300C5 PO; +LACT-2
[2020-08-03 03:25] VITALS: BP 97/50
[2020-08-03] MEDS ORDERED: PANTOPRAZOLE 40 MG INJ VIAL IVP ONE (04:15)
[2020-08-03] MEDS ORDERED: ONDANSETRON 4 MG/2 ML VIAL IVP ONE (04:15)
[2020-08-03] MEDS ORDERED: NACL 0.9% 1,000 ML IV ONE (04:40)
[2020-08-03 04:51] LABS: BASOPHILS # (AUTO) 0.1 K/uL (0.00-0.22); EOSINOPHILS # (AUTO) 0.3 K/uL (0-0.4); EOSINOPHILS % (AUTO) 2.5 % (0.0-4.0); HEMATOCRIT 29.5 % (36-48); HEMOGLOBIN 10.1 g/dL (12.0-16.0); LYMPHOCYTES # (AUTO) 2.2 K/uL (2.5-16.5); LYMPHOCYTES % (AUTO) 21.5 % (20.5-51.1); MEAN CORPUSCULAR HEMOGLOBIN 31 pg (27-31); MEAN CORPUSCULAR HGB CONC 34 g/dL (33-37); MEAN CORPUSCULAR VOLUME 89.9 fL (80-94); MONOCYTES # (AUTO) 0.8 K/uL (0.8-1.0); MONOCYTES % (AUTO) 8.1 % (1.7-9.3); NEUTROPHILS # (AUTO) 6.7 K/uL (1.8-7.7); NEUTROPHILS % (AUTO) 66.9 % (42.2-75.2); PLATELET COUNT (AUTO) 80 K/uL (140-450); RED BLOOD CELL COUNT(AUTO) 3.28 MIL/uL (4.20-5.40); RED CELL DISTRIBUTION WIDTH 14.7 % (11.6-13.7); WHITE BLOOD COUNT (AUTO) 10.1 K/uL (4.8-10.8)
[2020-08-03 05:13] LABS: ALBUMIN 2.3 g/dL (3.4-5.0); ANION GAP 12.5 (8-16); CARBON DIOXIDE 24.6 mmol/L (21-32); CREATININE 0.9 mg/dL (0.6-1.3); POTASSIUM 4.1 mmol/L (3.5-5.1)
[2020-08-03 05:56] VITALS: BP 106/54
== END 2020-08-03 05:56 | disposition home or self-care (01) ==
LOC: MED 03:11
DX: K92.2 Gastrointestinal hemorrhage, unspecified (principal); E11.9 Type 2 diabetes mellitus without complications; F10.20 Alcohol dependence, uncomplicated; N28.9 Disorder of kidney and ureter, unspecified; Z71.6 Tobacco abuse counseling; Z88.1 Allergy status to other antibiotic agents; Z79.899 Other long term (current) drug therapy
CPT/HCPCS: 36415; 80053; 85025; 86886; 86900; 86901; 96361; 96374; 96375; 99284; C9113; J2405; J7030

== ENCOUNTER 2021-05-29 00:31 | Observation (INO) | payer OTHER, SELFPAY ==
[~2021-05-29] VITALS: Ht 167.6 cm; Wt 78.6 kg
[~2021-05-29 00:31] MED LIST changes: -CLIN300C5 PO; +CLIN300C73 PO
[2021-05-29 00:34] VITALS: BP 164/84
--- NOTE | 2021-05-29 00:34 | NUR ---
to bed via wheelchair
--- NOTE | 2021-05-29 00:40 | NUR ---
patient brought in from home for possible OD. according to patient hugged merte and gave him a kiss at around 2330 yesterday which found odd. Then gets a call from a friend saying that patient possibly took medications and has been extremely lethargic. patient was the one that called the friend about taking medications at home. patient being uncooperative and refuses to answer questions. patient can ambulate and is lethargic responds to voice, and pain. AAOx0. VSS. pmh: depression, DM, HDL allergies: cephalexin
--- NOTE | 2021-05-29 01:21 | NUR ---
Dr. Devi examining patient.
[2021-05-29 01:43] LABS: BASOPHILS # (AUTO) 0.1 K/uL (0.00-0.22); BASOPHILS % (AUTO) 0.8 % (0.0-2.0); EOSINOPHILS # (AUTO) 0.2 K/uL (0-0.4); EOSINOPHILS % (AUTO) 2.5 % (0.0-4.0); HEMATOCRIT 41.2 % (36-48); HEMOGLOBIN 14.3 g/dL (12.0-16.0); LYMPHOCYTES # (AUTO) 1.8 K/uL (2.5-16.5); LYMPHOCYTES % (AUTO) 20.2 % (20.5-51.1); MEAN CORPUSCULAR HEMOGLOBIN 32 pg (27-31); MEAN CORPUSCULAR HGB CONC 35 g/dL (33-37); MEAN CORPUSCULAR VOLUME 93.4 fL (80-94); MONOCYTES # (AUTO) 0.7 K/uL (0.8-1.0); MONOCYTES % (AUTO) 7.7 % (1.7-9.3); NEUTROPHILS # (AUTO) 6.1 K/uL (1.8-7.7); NEUTROPHILS % (AUTO) 68.8 % (42.2-75.2); PLATELET COUNT (AUTO) 86 K/uL (140-450); RED BLOOD CELL COUNT(AUTO) 4.41 MIL/uL (4.20-5.40); WHITE BLOOD COUNT (AUTO) 8.9 K/uL (4.8-10.8)
--- NOTE | 2021-05-29 01:52 | NUR ---
Called poison control was told to watch out for signs of hypotension, bradycardia, seizures, QTC prolongation, QRS widening, POWERHOUSE MECHANIC APPRENTICE depression, and Serotonin syndrome. Was told to repeat EKG in 4 hours, patient needs to be observed overnight or when patient is back to her "normal". Get UDS and aspirin, tylenol, and alcohol draws on patient. if there is a QTC prolongation use Manesium sulfate, if there is QRS widening use sodium bicarb. For hypotension use IV fluids and antidote for propanolol use glucagon 3mg-5mg; despite use of glucagon and IV fluids if needed, start norepinephrine. Call back for further questions and directions if needed.
[2021-05-29 02:02] LABS: ALBUMIN 3.1 g/dL (3.4-5.0); ANION GAP 12.8 (8-16); ASPARTATE AMINOTRANSFERASE 91 U/L (15-37); CARBON DIOXIDE 28.9 mmol/L (21-32); CHLORIDE 100 mmol/L (98-107); CREATININE 0.9 mg/dL (0.6-1.3); GFR ARICAN-AMERICAN 81 mL/min (>90); GLUCOSE 324 mg/dL (74-106); POTASSIUM 3.7 mmol/L (3.5-5.1); SODIUM SERUM 138 mmol/L (136-145); TOTAL BILIRUBIN 1.1 mg/dL (0.0-1.0); UREA NITROGEN, BLOOD 8 mg/dL (7-18)
[2021-05-29 02:04] LABS: ACETAMINOPHEN < 0.5 ug/ml (10-30); SALICYLATE < 2.8 mg/dL (2.8-20.0)
[2021-05-29] MEDS ORDERED: NACL 0.9% 1,000 ML IV ONE ×3 (02:40→07:20)
--- NOTE | 2021-05-29 04:00 | NUR ---
notified ERMD regarding desaturation as low as 80% and decreased BP of 90s/60s
--- NOTE | 2021-05-29 05:38 | NUR ---
ambulated patient to the bathroom for urine collection. patient able to walk with assist but is unable to support self, ended up placing patient in a wheelchair to go back into bed. patient did report feeling weakness.
--- NOTE | 2021-05-29 05:57 | NUR ---
patient reports that patient said that she took almost all her antidepressant medications and the whole entire weekly pill box where all of her prescribed medications are in. ERMD made aware. and was told to report to poison control and have patient bring the pill medication containers.
--- NOTE | 2021-05-29 06:06 | NUR ---
Called poison control for updates. Was informed that patient needs to be observed for 24hours due to possibility of delayed seizures from Wellbutrin. An EKG must be performed at 0900 need to keep a close eye on the QTC and QRSD
[2021-05-29 06:11] LABS: ALBUMIN 2.7 g/dL (3.4-5.0); ANION GAP 10.7 (8-16); ASPARTATE AMINOTRANSFERASE 81 U/L (15-37); CARBON DIOXIDE 28.2 mmol/L (21-32); CHLORIDE 106 mmol/L (98-107); CREATININE 0.9 mg/dL (0.6-1.3); GFR ARICAN-AMERICAN 81 mL/min (>90); GLUCOSE 265 mg/dL (74-106); POTASSIUM 3.9 mmol/L (3.5-5.1); SODIUM SERUM 141 mmol/L (136-145); TOTAL BILIRUBIN 0.9 mg/dL (0.0-1.0); UREA NITROGEN, BLOOD 10 mg/dL (7-18)
--- NOTE | 2021-05-29 06:19 | NUR ---
Dr. Garvin examining patient.
--- NOTE | 2021-05-29 06:21 | NUR ---
posion control called back regarding the patient and was reported that if the AST and ALT are elevated start the patient on acetadote to protect the liver. MARNIE made aware
[2021-05-29 06:31] LABS: APPEARANCE,URINE CLEAR (CLEAR); BILIRUBIN,URINE NEGATIVE (NEGATIVE); BLOOD, URINE TRACE-I (NEGATIVE); COLOR,URINE YELLOW (YELLOW); LEUKOCYTE ESTERASE ,URINE 1+ (NEGATIVE); NITRITE, URINE NEGATIVE (NEGATIVE); UGLUCOSE 3+ (NEGATIVE)
[2021-05-29 06:36] LABS: RBC,URINE 0-5 /HPF (0-5)
[2021-05-29 06:37] LABS: WBC,URINE 0-5 /HPF (0-5)
[2021-05-29 06:41] LABS: ACETAMINOPHEN < 0.5 ug/ml (10-30); SALICYLATE < 2.8 mg/dL (2.8-20.0)
[2021-05-29 06:54] LABS: BARBITURATE, URINE NEGATIVE ng/ml (NEG <=200); BENZODIAZEPINE, URINE NEGATIVE ng/mL (NEG <=200); CANNABINOID, URINE POSITIVE ng/mL (NEG <=50); COCAINE, URINE NEGATIVE ng/mL (NEG <=300); OPIATE, URINE NEGATIVE ng/mL (NEG <=2000); PHENCYCLIDINE SCREEN,URINE NEGATIVE ng/mL (NEG <=25)
[2021-05-29] MEDS ORDERED: SUCR1TAB35 PO (06:55)
[2021-05-29] MEDS ORDERED: LOSA100T1 PO (06:55)
[2021-05-29] MEDS ORDERED: OMEG-64 PO (06:55)
[2021-05-29] MEDS ORDERED: FERR75LI22 PO (06:55)
[2021-05-29] MEDS ORDERED: PROP20TA29 PO ×2 (06:55)
[2021-05-29] MEDS ORDERED: THIA50TA39 PO (06:55)
[2021-05-29] MEDS ORDERED: BUS5 PO (06:55)
[2021-05-29] MEDS ORDERED: BUPR300T70 PO (06:55)
[2021-05-29] MEDS ORDERED: SERT100T PO (06:55)
[2021-05-29] MEDS ORDERED: [UNRECOGNIZED DRUG - CODE] SQ (06:55)
[2021-05-29] MEDS ORDERED: INSU100I7 SQ (06:55)
[2021-05-29] MEDS ORDERED: FOLI1TAB90 PO (06:55)
[2021-05-29] MEDS ORDERED: CHOL5000 PO (06:55)
--- NOTE | 2021-05-29 07:05 | NUR ---
came back and said that the main medication that was out was bupropion. ERMD made aware
--- NOTE | 2021-05-29 07:07 | NUR ---
REPORT RECEIVED FROM ALYCE RN FOR CONTINUITY OF CARE. PT ASLEEP IN BED, HAS EYES CLOSED. IV SITE LT AC 20, INFUSING NS 150 ML/HR. SR ON MONITOR. ON 5L NASAL CANNULA. SKIN WARM AND DRY. AT BEDSIDE. WILL CONTINUE TO MONITOR.
--- NOTE | 2021-05-29 07:07 | NUR ---
Pt report given to Bo ENGLISH. Transfer of care at this time.
[2021-05-29] MEDS ORDERED: ONDANSETRON 4 MG/2 ML VIAL IVP PRN (07:55)
[2021-05-29] MEDS ORDERED: KCL 20 MEQ/WATER INJ PREMIX 200 ML IV PRN (07:55)
[2021-05-29] MEDS ORDERED: MAG SULF 2000 MG/WATER PREMIX 50 ML IV PRN (07:55)
[2021-05-29] MEDS ORDERED: ACETAMINOPHEN 325 MG TAB PO PRN (07:55)
[2021-05-29] MEDS ORDERED: POTASSIUM CHLORIDE 10 MEQ TABER PO PRN (07:55)
[2021-05-29] MEDS ORDERED: MAGNESIUM OXIDE 400 MG TAB PO PRN (07:55)
[2021-05-29] MEDS ORDERED: DEXTROSE 50% 50 ML SYR IVP PRN (08:00)
--- NOTE | 2021-05-29 08:00 | NUR ---
PT EATING BREAKFAST AT THIS TIME
[2021-05-29] MEDS: NACL 0.9% 1,000 ML IV SCH (08:57)
--- NOTE | 2021-05-29 09:50 | NUR ---
CALLED POISION CONTROL UPDATED ON PT CONDITION. RECCOMENDATION TO OBSERVE FOR TO DROWSINESS, TACHYCARDIA AND SEIZURES.
[2021-05-29] MEDS: INSULIN LISPRO SLIDING SCALE 100 UNITS/ML VIAL SUBQ PRN ×2 (11:01→17:20)
[2021-05-29] MEDS: BLOOD GLUCOSE MONITORING 1 DEV DEV FS SCH ×3 (11:04→22:47)
--- NOTE | 2021-05-29 11:22 | NUR ---
DR WATKINS AT BEDSIDE EXAMINING PT
--- NOTE | 2021-05-29 12:21 | NUR ---
PT PROVIDED WITH LUNCH TRAY, EATING AT THIS TIME
--- NOTE | 2021-05-29 12:50 | NUR ---
PT ON TELEPSYCH
--- NOTE | 2021-05-29 14:21 | NUR ---
PT REQUESTING FOR SODA, CALLED DIETARY. PT PROVIDED WITH DIET SODA.
--- NOTE | 2021-05-29 14:51 | NUR ---
PT ASSISTED TO RESTROOM
--- NOTE | 2021-05-29 15:00 | NUR ---
pt placed hold for observation
--- NOTE | 2021-05-29 16:30 | NUR ---
Patient awake, alert. Patient appears to be resting comfortably in bed. Vital Signs within normal limits. Respirations even and unlabored. On 5 L Nasal Cannula. Will continue to monitor.
--- NOTE | 2021-05-29 17:23 | NUR ---
RECEIVED CALL FROM POISON CONTROL, SPOKE WITH KHOA. RECCOMENDING 1 AMP OF BICARB D/T PROLONGED QRS AND A REPEAT EKG.
[2021-05-29] MEDS ORDERED: SODIUM BICARBONATE 8.4% PFS 50 MEQ/50 ML SYR IVP ONE ×2 (17:25→19:00)
--- NOTE | 2021-05-29 17:28 | NUR ---
CALLED PRABHJOT CARDENAS, ORDERS FOR 1 AMP OF BICARB AND A REPEAT EKG.
--- NOTE | 2021-05-29 19:18 | NUR ---
REPORT RECEIVED FROM TAMEKA SANTACRUZ FOR CONTINUATION OF PATIENT CARE. AT THIS TIME.
--- NOTE | 2021-05-29 19:18 | NUR ---
Pt report given to NORMAN ENGLISH. Transfer of care at this time.
--- NOTE | 2021-05-29 19:21 | NUR ---
PATIENT ON 0.9 NS RUNNING AT 80ML/HR W 605ML VTBI.
--- NOTE | 2021-05-29 19:21 | NUR ---
PATIENT LAYING IN BED AWAKE, HOB ELEVATED, BED LOCKED IN LOWEST POSITION W X2 SIDERAILS UP, SEIZURE PRECAUTIONS IN PLACE. PATIENT DENIES SUICIDAL THOUGHTS OR PLANS AT THIS TIME. PATIENT REPORTS BEING UPSET D/T ISSUES HER SON IS HAVING AND FEELING UNABLE TO HELP HIM. PATIENT REPORTS HOPES THAT HOME SITUATION W SON WILL IMPROVE. PATIENT DENIES ANY PAIN OR SOB. PATIENT CONNECTED TO MONITOR W VSS. PATIENT O2 SAT AT 100 ON 5L NC. BREATHING EVEN AND UNLABORED. NAD NOTED, WILL CONTINUE TO MONITOR.
--- NOTE | 2021-05-29 21:00 | NUR ---
PATIENT LAYING IN BED AWAKE. HOB SLIGHTLY ELEVATED. BED LOCKED IN LOWEST POSITION W X2 SIDERAILS UP FOR PATIENT SAFETY. PATIENT DENIES ANY PAIN. BREATHING EVEN AND UNLABORED. PATIENT CONNECTED TO MONITOR W VSS. 0.9 NS RUNNING AT 80ML/HR. NAD NOTED, WILL CONTINUE TO MONITOR.
--- NOTE | 2021-05-29 22:12 | NUR ---
PATIENT BP AT 120/55. SPOKE W DR. RICK. PER DR.SANTIAGO MARIE TO ADMINISTER INDERAL MED AT THIS TIME.
--- NOTE | 2021-05-29 22:12 | NUR ---
PT REQUEST CALL WHEN PT IS TX
--- NOTE | 2021-05-29 22:40 | NUR ---
PATIENT ON 3L NC W 99 O2 SAT.
[2021-05-29] MEDS: PROPRANOLOL 20 MG TAB PO SCH (22:46)
[2021-05-29] MEDS: INSULIN LANTUS 100 UNITS/ML 10 ML VIAL SUBQ SCH (22:49)
--- NOTE | 2021-05-29 23:13 | NUR ---
PATIENT AMBULATED TO BATHROOM W RN ASSISTANCE.
--- NOTE | 2021-05-29 23:15 | NUR ---
SPOKE W POISION CONTROL. NO NEW ORDERS PER POSISON CONTROL AT THIS TIME.
--- NOTE | 2021-05-30 01:00 | NUR ---
PATIENT LAYING IN BED SUPINE W EYES CLOSED. HOB SLIGHTLY ELEVATED.BED LOCKED IN LOWEST POSITION W X2 SIDERAILS UP FOR PATIENT SAFETY. BREATHING EVEN AND UNLABORED. PATIENT CONNECTED TO MONITOR W VSS. 0.9 NS RUNNING AT 80ML/HR. NAD NOTED, WILL CONTINUE TO MONITOR.
--- NOTE | 2021-05-30 03:00 | NUR ---
PATIENT LAYING IN BED R LATERAL POSITION W EYES CLOSED. HOB SLIGHTLY ELEVATED.BED LOCKED IN LOWEST POSITION W X2 SIDERAILS UP FOR PATIENT SAFETY. BREATHING EVEN AND UNLABORED. PATIENT CONNECTED TO MONITOR W VSS. 0.9 NS RUNNING AT 80ML/HR. NAD NOTED, WILL CONTINUE TO MONITOR.
[2021-05-30 06:57] LABS: BASOPHILS % (AUTO) 0.5 % (0.0-2.0); EOSINOPHILS # (AUTO) 0.2 K/uL (0-0.4); EOSINOPHILS % (AUTO) 2.7 % (0.0-4.0); HEMATOCRIT 35.9 % (36-48); HEMOGLOBIN 12.3 g/dL (12.0-16.0); LYMPHOCYTES # (AUTO) 1.6 K/uL (2.5-16.5); LYMPHOCYTES % (AUTO) 19.6 % (20.5-51.1); MEAN CORPUSCULAR HEMOGLOBIN 33 pg (27-31); MEAN CORPUSCULAR HGB CONC 34 g/dL (33-37); MEAN CORPUSCULAR VOLUME 95.2 fL (80-94); MONOCYTES # (AUTO) 0.9 K/uL (0.8-1.0); MONOCYTES % (AUTO) 11.1 % (1.7-9.3); NEUTROPHILS # (AUTO) 5.4 K/uL (1.8-7.7); NEUTROPHILS % (AUTO) 66.1 % (42.2-75.2); PLATELET COUNT (AUTO) 51 K/uL (140-450); RED BLOOD CELL COUNT(AUTO) 3.77 MIL/uL (4.20-5.40); RED CELL DISTRIBUTION WIDTH 15.5 % (11.6-13.7); WHITE BLOOD COUNT (AUTO) 8.2 K/uL (4.8-10.8)
--- NOTE | 2021-05-30 07:15 | NUR ---
PATIENT LAYING IN BED SUPINE POSITION W EYES CLOSED. HOB SLIGHTLY ELEVATED. BED LOCKED IN LOWEST POSITION W X2 SIDERAILS UP FOR PATIENT SAFETY. BREATHING EVEN AND UNLABORED. PATIENT CONNECTED TO MONITOR W VSS. NAD NOTED, WILL CONTINUE TO MONITOR.
--- NOTE | 2021-05-30 07:20 | NUR ---
Pt report given to TAMEKA CONRAD. Transfer of care at this time.
[2021-05-30] MEDS: BLOOD GLUCOSE MONITORING 1 DEV DEV FS SCH ×4 (07:38→23:14)
[2021-05-30] MEDS: INSULIN LISPRO SLIDING SCALE 100 UNITS/ML VIAL SUBQ PRN ×3 (07:46→17:11)
[2021-05-30 07:51] LABS: ALBUMIN 2.4 g/dL (3.4-5.0); ANION GAP 6.4 (8-16); CARBON DIOXIDE 30.5 mmol/L (21-32); CREATININE 1.2 mg/dL (0.6-1.3); POTASSIUM 4.9 mmol/L (3.5-5.1); TOTAL BILIRUBIN 0.8 mg/dL (0.0-1.0)
--- NOTE | 2021-05-30 08:00 | NUR ---
PT. RESTING WITH EYES CLOSED, RESPIRATIONS EVEN AND UNLABORED. ON BEDSIDE FINANCIAL QUANTITATIVE ANALYST, VSS.
[2021-05-30] MEDS: NACL 0.9% 1,000 ML IV SCH ×3 (08:31→21:25)
[2021-05-30] MEDS: PROPRANOLOL 20 MG TAB PO SCH ×2 (09:00→23:29)
[2021-05-30] MEDS: PANTOPRAZOLE 40 MG TABEC PO SCH (09:24)
[2021-05-30] MEDS: LOSARTAN 50 MG TAB PO SCH (09:24)
[2021-05-30] MEDS: FOLIC ACID 1 MG TAB PO SCH (09:24)
--- NOTE | 2021-05-30 09:30 | NUR ---
PT. PROVIDED WITH BREAKFAST TRAY, SITTING UP IN BED EATING. ALL NEEDS MET AT THIS TIME.
--- NOTE | 2021-05-30 13:13 | NUR ---
PT. W/C ASSISTED TO BATHROOM.
--- NOTE | 2021-05-30 13:14 | NUR ---
PT W/C ASSISTED BACK TO BED. NEW SHEETS, GOWN AND BLANKET PROVIDED. PATIENT PROVIDED LUNCH TRAY. SITTING UP IN BED EATING. PLACED BACK ON LEVER TENDER, ALL NEEDS MET AT THIS TIME.
--- NOTE | 2021-05-30 13:51 | NUR ---
SPOKE WITH JACKIE FROM POISON CONTROL FOR UPDATE ON PATIENT CONDITION.
--- NOTE | 2021-05-30 17:00 | NUR ---
PATIENT PROVIDED WITH DINNER TRAY, SITTING UP IN BED EATING. ALL NEEDS MET AT THIS TIME.
--- NOTE | 2021-05-30 18:30 | NUR ---
PT APPEARS TO BE RESTING, ON BEDSIDE SENIOR ASSOCIATE. VSS.
--- NOTE | 2021-05-30 19:20 | NUR ---
RECIEVED REPORT FROM TAMEKA CONRAD FOR CONTINUITY OF CARE.
--- NOTE | 2021-05-30 19:42 | NUR ---
Pt report given to Gladys ENGLISH. Transfer of care at this time.
--- NOTE | 2021-05-30 19:45 | NUR ---
PT LYING IN BED, SITTING UP WITH BY SIDE. PT DENIES SI OR DESIRE TO HURT OTHERS AT THIS TIME. PLEASANT AND COOPERATIVE AFFECT. DENIES NEW NEEDS AT THIS TIME. WILL CONTINUE TO MONITOR.
--- NOTE | 2021-05-30 19:51 | NUR ---
Call Center aware of pt , faxed packet to all designated facilities , At this time thewre are no vacancy , will continue to follow up for placement.
--- NOTE | 2021-05-30 20:50 | NUR ---
PT ASSISTED TO RESTROOM AND BACK VIA W.C. PT SHAKEY UPON STANDING. DENIES LIGHTHEADEDNESS. ABLE TO ASSIST SELF BY HOLDING ONTO HAND RAIL.
[2021-05-30] MEDS: INSULIN LANTUS 100 UNITS/ML 10 ML VIAL SUBQ SCH (21:00)
--- NOTE | 2021-05-30 22:30 | NUR ---
ACCUCHECK 108.
--- NOTE | 2021-05-30 23:08 | NUR ---
RECIEVED CALL FROM PTS . UPDATED ON PT STATUS. ALL QUESTIONS ANSWERED.
--- NOTE | 2021-05-31 00:30 | NUR ---
PT ASSISTED TO RESTROOM AND BACK TO BED WITH Nelly, PT REMAINS SHAKEY WHEN STANDING, BUT ABLE TO SUPPORT SELF STEADILY WHEN HOLDING ONTO HAND RAIL IN RESTROOM.
--- NOTE | 2021-05-31 02:00 | NUR ---
Patient appears to be resting comfortably in bed, AWAKE AND LYING CALMLY. Vital Signs within normal limits. Respirations even and unlabored. PT DENIES PAIN OR DISCOMFORT. WILL CONTINUE TO MONITOR.
--- NOTE | 2021-05-31 04:11 | NUR ---
Patient appears to be resting comfortably in bed, EYES CLOSED, SNORING SOUNDS NOTED. Vital Signs within normal limits. Respirations even and unlabored. NO NOTED DISTRESS AT THIS TIME.
--- NOTE | 2021-05-31 06:20 | NUR ---
PT ASSISTED TO RESTROOM AND BACK TO BED VIA W.C. ASSIST. PT SHAKEY UPON STANDING BUT INCREASED IN STEADINESS WHILE TRANSITIONING IN RESTROOM. PT COMFORTABLY POSITIONED IN BED AND RECONNECTED TO [facility].
--- NOTE | 2021-05-31 07:03 | NUR ---
LAB AT BEDSIDE.
--- NOTE | 2021-05-31 07:19 | NUR ---
REPORT GIVEN TO TAMEKA OLIVAREZ FOR CONTINUITY OF CARE.
[2021-05-31] MEDS: BLOOD GLUCOSE MONITORING 1 DEV DEV FS SCH ×3 (07:39→16:30)
[2021-05-31 07:56] LABS: BASOPHILS % (AUTO) 0.5 % (0.0-2.0); EOSINOPHILS # (AUTO) 0.2 K/uL (0-0.4); EOSINOPHILS % (AUTO) 3.3 % (0.0-4.0); HEMOGLOBIN 11.6 g/dL (12.0-16.0); LYMPHOCYTES # (AUTO) 1.4 K/uL (2.5-16.5); LYMPHOCYTES % (AUTO) 21.7 % (20.5-51.1); MEAN CORPUSCULAR HEMOGLOBIN 33 pg (27-31); MEAN CORPUSCULAR HGB CONC 35 g/dL (33-37); MEAN CORPUSCULAR VOLUME 92.3 fL (80-94); MONOCYTES # (AUTO) 0.5 K/uL (0.8-1.0); MONOCYTES % (AUTO) 8.5 % (1.7-9.3); NEUTROPHILS # (AUTO) 4.3 K/uL (1.8-7.7); PLATELET COUNT (AUTO) 42 K/uL (140-450); RED BLOOD CELL COUNT(AUTO) 3.58 MIL/uL (4.20-5.40); RED CELL DISTRIBUTION WIDTH 14.7 % (11.6-13.7); WHITE BLOOD COUNT (AUTO) 6.5 K/uL (4.8-10.8)
[2021-05-31 08:07] LABS: ALBUMIN 2.3 g/dL (3.4-5.0); ANION GAP 7.4 (8-16); CARBON DIOXIDE 28.4 mmol/L (21-32); CREATININE 0.9 mg/dL (0.6-1.3); POTASSIUM 3.8 mmol/L (3.5-5.1); TOTAL BILIRUBIN 0.8 mg/dL (0.0-1.0)
[2021-05-31] MEDS: INSULIN LISPRO SLIDING SCALE 100 UNITS/ML VIAL SUBQ PRN ×2 (08:08→12:03)
--- NOTE | 2021-05-31 08:10 | NUR ---
Patient appears to be resting comfortably in bed. Vital Signs within normal limits. Respirations even and unlabored. GLUCOSE MONITORING 188, GIVEN 2 UNITS OF HUMALOG, PT EATING BREAKFAST AT THIS TIME.
--- NOTE | 2021-05-31 08:56 | NUR ---
PATIENT HAS BEEN SCREENED AND CATEGORIZED LOW NUTRITION RISK. PATIENT WILL BE SEEN WITHIN 7 DAYS OF ADMISSION. 06/04/[address]
[2021-05-31] MEDS: LOSARTAN 50 MG TAB PO SCH (09:06)
[2021-05-31] MEDS: FOLIC ACID 1 MG TAB PO SCH (09:07)
[2021-05-31] MEDS: PROPRANOLOL 20 MG TAB PO SCH (09:07)
[2021-05-31] MEDS: PANTOPRAZOLE 40 MG TABEC PO SCH (09:08)
--- NOTE | 2021-05-31 09:51 | NUR ---
ORAL CARE AND NEW DISPOSABLE UNDERWEAR PROVIDED AT THIS TIME.
[2021-05-31] MEDS: NACL 0.9% 1,000 ML IV SCH (09:58)
--- NOTE | 2021-05-31 11:44 | NUR ---
PT WHEELCHAIR ASSISTED TO BATHROOM. PT TOLERATED WELL, LAYING IN BED AWAKE AND QUIET AT THIS TIME.
--- NOTE | 2021-05-31 12:09 | NUR ---
AT BEDSIDE, GLUCOSE AT 255, 6 UNITS HUMALOG GIVEN FOR GLUCOSE CONTROL LUNCH PROVIDED AT THIS TIME.
--- NOTE | 2021-05-31 13:43 | NUR ---
Call Center at this time still making attempts to find placement , there are still no vacancy , will notify ER when placement is found .
--- NOTE | 2021-05-31 14:50 | NUR ---
CALLED HOUR DUPLICATOR [facility] SET UP OPERATOR YAMILKA, UNABLE TO GET A HOLD OF [phone] NUMBER TO GIVE REPORT. CALLED TWICE, NO ANSWER. YAMILKA RN STATES SHE WILL CALL UNIT TO HAVE THEM GLASS BEAD MAKER PHONE FOR REPORT.
--- NOTE | 2021-05-31 14:51 | NUR ---
Patient to be transferred to [facility]. Is being transferred due to HIGHER LEVEL OF CARE. Receiving facility has accepting physician and available space. ER physician has signed transfer form. Patient or responsible constitution party has agreed to transfer and signed form. Patient belongings inventoried and will be sent with patient. Copy of nursing notes, lab reports, EKG, Physicians Orders and X-rays to be sent with patient.Receiving facility HAS NO ANSWERED PHONE FOR REPORT AFTER CALLING TWICE. [facility] ambulance service has been called for transfer. ETA is 60-90 MINUTE.
--- NOTE | 2021-05-31 14:54 | NUR ---
AFTER 4TH CALL, PRANAV ENGLISH PICKED UP PHONE, STATES SHE WILL CALL BACK DUE TO EMERGENCY AT FACILITY.
--- NOTE | 2021-05-31 15:18 | NUR ---
CONSENT OBTAINED FOR TRANSFER TO FACILITY. NO CALL BACK FROM PRANAV ENGLISH FOR REPORT AT THIS TIME.
--- NOTE | 2021-05-31 16:41 | NUR ---
Patient appears to be resting comfortably in bed. Vital Signs within normal limits. Respirations even and unlabored. PT AT BEDSIDE.
[2021-05-31 17:00] VITALS: BP 168/62
--- NOTE | 2021-05-31 17:03 | NUR ---
[phone] HERE FOR PT EVALUATION ADVISOR [employer] ENGLISH REPORT GIVEN
== END 2021-05-31 17:00 ==
LOC: MED 00:31 → INTOOBSV 07:58 → MTU 07:58 → UNDOADMIN 07:58 → MTU 05-31 17:00
PROVIDERS: ADMIT Internal Medicine; ATTEND Internal Medicine
DX: T65.92XA Toxic effect of unspecified substance, intentional self-harm, initial encounter (principal); Z20.822 Contact with and (suspected) exposure to COVID-19; R41.82 Altered mental status, unspecified; F32.9 Major depressive disorder, single episode, unspecified; I10 Essential (primary) hypertension; E88.09 Other disorders of plasma-protein metabolism, not elsewhere classified; K21.9 Gastro-esophageal reflux disease without esophagitis; R82.90 Unspecified abnormal findings in urine; E11.9 Type 2 diabetes mellitus without complications; K74.60 Unspecified cirrhosis of liver; Z87.891 Personal history of nicotine dependence; Y92.89 Other specified places as the place of occurrence of the external cause; Z98.890 Other specified postprocedural states; Z90.49 Acquired absence of other specified parts of digestive tract
CPT/HCPCS: 36415; 80053; 80305; 81001; 81025; 83036; 85025; 87086; 87426; 93005; 96361; 96372; 96374; 99284; G0378; G0480; G0482; J1815; U0003